=== PATIENT | male | born 1970 | race Caucasian/White ===

== ENCOUNTER 2018-10-14 10:45 | Emergency (ER) | payer BC, MEDICAID ==
[~2018-10-14] VITALS: Ht 180.3 cm; Wt 113.4 kg
[~2018-10-14 10:45] MED LIST: ASPI-1154 PO; NOR10 PO; OMEP20CA4 PO
[2018-10-14 10:54] VITALS: BP_SYST 137
[2018-10-14] MEDS ORDERED: KETOROLAC TROMETHAMINE 60 MG/2 ML VIAL IM ONE (11:15)
[2018-10-14 12:25] VITALS: BP_SYST 137
== END 2018-10-14 12:25 | disposition home or self-care (01) ==
LOC: SED 10:45
DX: S43.401A Unspecified sprain of right shoulder joint, initial encounter (principal); I10 Essential (primary) hypertension; Z79.82 Long term (current) use of aspirin; Z79.899 Other long term (current) drug therapy; W11.XXXA Fall on and from ladder, initial encounter; Y93.89 Activity, other specified; Y92.89 Other specified places as the place of occurrence of the external cause; Y99.8 Other external cause status
CPT/HCPCS: 73030; 96372; 99283; J1885